=== PATIENT | female | born 1990 | race Caucasian/White ===

== ENCOUNTER 2017-12-12 21:42 | Emergency (ER) | payer MEDICAID, SELFPAY ==
[2017-12-12 21:44] VITALS: BP 131/74; PULSE 119; RESP 23; TEMP 37; O2SAT 100
[2017-12-12 21:48] VITALS: PULSE 135; RESP 22; RESP 23; O2SAT 100
[2017-12-12 21:50] VITALS: PULSE 121; RESP 15; O2SAT 100
[2017-12-12 22:00] VITALS: BP 124/76; PULSE 106; PULSE 109; RESP 20; O2SAT 100
[2017-12-12 22:01] VITALS: PULSE 98; RESP 19; O2SAT 100
--- NOTE | 2017-12-12 22:06 | ED.GENADUL_ITS ---
Disposition Clinical Impression: Anxiety, Asthma Disposition: HOME Condition: Stable Instructions: Asthma (ED), Anxiety (ED) Additional Instructions: follow up with your primary care provider within a week if you have severe worsening shortness of breath return to the emergency department Medical Decision Making - Medical Decision Making patient here with symptoms that are likely from anxiety and asthma. She is hd stable and speaking in full sentences with no significant hypoxia or work of breathing. Will give albuterol and spacer and 1 time dose of dexamethasone. SHe has no evidence of dvt and does have mild tachycardia but this is likely from the albuterol given to her prior to arrival. She has no pleuritic chest pain so doubt Pe. She will f/u with pcp and return precautions given. I suspect her right leg numbness was either related to anxiety or less likely periphearl neuropathy. She has no deficits on exam so doubt cva and no other deficits on hx so doubt tia - Differential Diagnosis anxiety, asthma, copd History of Present Illness - General Chief complaint: SOB Stated complaint: CALEX Time Seen by Provider: 12/12/17 21:42 Source: patient Mode of arrival: ambulatory Limitations: no limitations - History of Present Illness Initial comments: 27 yo female with hx of asthma and anxiety who comes in with shortness of breath. She states she was driving about 3 hours ago and her right leg became numb which sometimes happens when she is driving. She went for a run and felt anxious and short of breath so came here by ems. She was given an albuterol neb en route and now feels better. She is speaking in full sentences in no distress , does appear anxious. She states she has been under a lot of stress recently. denies chest pain, cough or fevers. She has mild expiratory wheezing at the bases bilaterally, no lower extremity edema and no calf pain MD Complaint: shortness of breath Onset/Timin -: hour(s) Improves with: none Worsens with: none Associated Symptoms: denies other symptoms Treatments Prior to Arrival: none - Related Data Sertraline HCl 80 mg PO DAILY ml 11/21/17 Allergies Allergy/AdvReac Type Severity Reaction Status Date / Time No Known Allergies Allergy Unverified 11/21/17 10:10 Review of Systems Constitutional: denies: fever Respiratory: shortness of breath. denies: cough Cardiovascular: denies: chest pain Psychiatric: anxiety. denies: homicidal thoughts, suicidal thoughts Comment: All other systems reviewed and negative Past Medical History - Past Medical History Medical history: asthma Surgical history: no surgical history - Social History Smoking status: current everyday smoker Alcohol use: none Drug use: none General Exam - General Limitations: no limitations General appearance: alert, anxious - Head Head exam: Present: atraumatic - Eye Eye exam: Present: normal apperance - ENT ENT exam: Present: mucous membranes moist - Neck Neck exam: Present: normal inspection - Respiratory Respiratory exam: Present: wheezes. Absent: respiratory distress, accessory muscle use - Cardiovascular Cardiovascular Exam: Present: normal rhythm, tachycardia, normal heart sounds - GI/Abdominal GI/Abdominal exam: Present: soft. Absent: tenderness - Extremities Exam Extremities exam: Present: normal inspection. Absent: pedal edema, calf tenderness - Neurological Exam Neurological exam: Present: alert, oriented X3, CN II-XII intact, normal gait. Absent: motor sensory deficit - Psychiatric Psychiatric exam: Present: anxious. Absent: homicidal ideation, suicidal ideation - Skin Skin exam: Present: warm Course Vital Signs - 24 hr 12/12/17 12/12/17 21:44 21:48 Temperature 98.6 F Pulse 119 H Respiratory 23 23 Rate Blood Pressure 131/74 Pulse Oximetry 100
[2017-12-12] MEDS: Dexamethasone 10 MG/ML VIAL PO (22:10)
[2017-12-12] MEDS: Albuterol HFA 8 GM 60 PUFF INH IH (22:10)
[2017-12-12] MEDS: Inhaler, Assist Device MC (22:11)
[2017-12-12 22:14] VITALS: TEMP 37.2
== END 2017-12-12 22:20 | disposition home or self-care (01) ==
PROVIDERS: Emergency Provider Emergency Medicine; PCP Family Medicine
DX: J45.909 Unspecified asthma, uncomplicated (principal); R41.9 Unspecified symptoms and signs involving cognitive functions and awareness
CPT/HCPCS: 99283; J1100

== ENCOUNTER 2018-01-02 20:40 | Emergency (ER) | payer MEDICAID, SELFPAY ==
[2018-01-02 20:50] VITALS: BP 119/59; PULSE 93; RESP 16; TEMP 36.2; O2SAT 96
--- NOTE | 2018-01-02 21:03 | ED.GENADUL ---
Disposition Clinical Impression: Anxiety Disposition: HOME Condition: Fair Instructions: Anxiety (ED) Additional Instructions: Encourage hydration. Please take medication as prescribed. Please pickle cutter your new medication as prescribed by psychiatrist tomorrow. Please continue to follow up with housing support, [facility] and local counselors. If you develop thoughts of self-harm, suicidal ideation, thoughts of harming others or the new/worsening symptoms please seek care urgently once again. Please follow-up within the next week with primary care for reevaluation. Referrals: Elif Sullivan [Primary Care Provider] - Medical Decision Making - Medical Decision Making Patient presents today with chief complaint of anxiety. Patient was picked up via EMS with chief complaint of anxiety attack while walking home from work. Patient reports she has multiple social stressors including her living situation, financial situation, work and the infrequency with which she sees her daughter. She reports that she had shortness of breath while having an anxiety attack. However, this is since resolved. Lungs are clear on exam. No wheezing or stridor. Good air movement in all villalba. EMS reports that her vital signs are normal. Oxygen was 100% on room air pulse 80. Patient was seen by her psychiatrist today who increase her sertraline. She has not been able to pickle cutter her new dose as of yet. Patient is describing anxiety, has a long history of anxiety and depression. Seems very upset regarding needing to work on. Her significant other is now present he reports that they had mechanical difficulty with the car. I reviewed the patient's notes from previous visits. This does sound consistent with previous complaints. She is not endorsing any neurologic deficits, when she was seen here earlier this month for anxiety she was endorsing sent altered sensation in her leg. She has no sensory deficits on exam. She is not endorsing headache. No visual changes. No chest pain. No GI upset. Patient is not hypoxic. Heart rate is noted to be minimally elevated. However, when nursing staff was taking this I was asked her about all of her social stressors she was teary on exam. She is not endorsing any pleuritic chest pain. Calves are soft and nontender. Patient is very low risk for ACS or PE, history is not consistent with this pathology. Patient's primary concern today is finding an acute treatment for her anxiety. Advised her that she may try breathing techniques. She reports that these have been discussed with her previously. However, does not sound that she uses tonight. Patient's medication was changed by her psychiatrist today. I encouraged her to pick this up tomorrow begin the new dose. Advised to continue with her counselors. I advised that she try to be self-aware as possible and know when her anxiety is starting to increase. I encouraged hydration. Patient has already been connected to multiple resources in the community for both financial and mental well-being. Advised that she continued with this. We discussed new/worsening symptoms when to seek care urgently once again. All of her questions and concerns were addressed and she is in agreement with this plan. History of Present Illness - General Chief complaint: RespSymp Stated complaint: CALEX Time Seen by Provider: 01/02/18 20:47 Source: patient, family, RN notes reviewed Mode of arrival: EMS Limitations: no limitations - History of Present Illness Initial comments: Patient is a 27-year-old female, accompanied by and brought in via EMS, with chief complaint of anxiety attack. Patient reports that prior to arrival she was at work, which she sounds very frustrated with. She reports that at the end of her shift her was supposed to pick her up. He did not pick her up and she was unable to obtain another ride, she began to walk home. Reports that while she was walking she became suddenly very anxious and short of breath. Patient has had multiple anxiety attacks in the past and has felt short of breath previously with them. Patient reports she has history of asthma. Does have inhaler but did not use this tonight. She denies a headache. No chest pain. Is not currently short of breath. Is currently feeling improved. Her significant other is now with her. He did review previous notes, most recently from her counselor, Myrna Escobar. She had reported the patient was having increased anxiety regarding a multitude of social stressors. Patient reiterates the same social stressors today. Patient was evaluated by psychiatrist today who has increased her sertraline. She was unable to pickle cutter this medication today, is planning to do so tomorrow. Patient sounds very upset that she needs to work a full-time job when she would rather be at home. However, patient also voiced financial stressors. Patient was angry with her place of employment today as They never even gave me a break. Seems very caught up with this and not getting a ride. Reports that she is hungry and thirsty. - Related Data Sertraline HCl 80 mg PO DAILY ml 11/21/17 Albuterol [Ventolin Hfa] 1 puff IH PRN 01/02/18 Allergies Allergy/AdvReac Type Severity Reaction Status Date / Time No Known Allergies Allergy Unverified 11/21/17 10:10 Review of Systems Constitutional: no symptoms reported Eyes: denies: vision change Respiratory: no symptoms reported, shortness of breath (has since resolved). denies: cough Cardiovascular: denies: chest pain, palpitations Gastrointestinal: denies: abdominal pain, nausea, vomiting Musculoskeletal: denies: back pain Skin: denies: rash Neurological: denies: headache Psychiatric: as per HPI, anxiety, depression. denies: auditory hallucinations, visual hallucinations, homicidal thoughts, suicidal thoughts Past Medical History - Past Medical History Medical history: asthma Surgical history: no surgical history Psychiatric history: depression - Social History Smoking status: current some day smoker Alcohol use: none Drug use: none Living Situation: lives with family General Exam - General Limitations: no limitations General appearance: alert, in no apparent distress, anxious - Head Head exam: Present: atraumatic - Eye Eye exam: Present: normal apperance - Respiratory Respiratory exam: Present: normal lung sounds bilaterally. Absent: respiratory distress - Cardiovascular Cardiovascular Exam: Present: regular rate, normal rhythm, normal heart sounds - Rectal Rectal exam: Present: deferred - Extremities Exam Extremities exam: Present: normal inspection. Absent: pedal edema, calf tenderness - Neurological Exam Neurological exam: Present: alert, CN II-XII intact, normal gait - Psychiatric Psychiatric exam: Present: depressed, anxious, flat affect - Skin Skin exam: Present: warm, dry, normal color Course Vital Signs - 24 hr 01/02/18 20:50 Temperature 36.2 C L Pulse 93 H Respiratory 16 Rate Blood Pressure 119/59 Pulse Oximetry 96
== END 2018-01-02 21:22 | disposition home or self-care (01) ==
PROVIDERS: Emergency Provider Emergency Medicine; PCP Family Medicine
DX: F41.8 Other specified anxiety disorders (principal)
CPT/HCPCS: 99283

== ENCOUNTER 2018-02-03 12:30 | Emergency (ER) | payer MEDICAID, SELFPAY ==
[2018-02-03 13:04] VITALS: BP 107/58; PULSE 70; RESP 16; TEMP 36.7; O2SAT 98
[2018-02-03 13:37] LABS: Bilirubin Negative (Negative); Blood Negative (Negative); Clarity Clear; Glucose Negative (Negative); Ketones Negative (Negative); Leukocyte Esterase Negative (Negative); Nitrite Negative (Negative); Urobilinogen 0.2 EU/dL (Up TO 0.2)
[2018-02-03] MEDS: Normal Saline 1,000 ML 1000 ML IV (15:10)
[2018-02-03] MEDS: Ondansetron 4 MG/2 ML VIAL IVP (15:20)
[2018-02-03] MEDS: Ketorolac 30 MG/ML VIAL IVP (15:20)
[2018-02-03 15:21] LABS: Absolute Basophil Count 0.01 k/cumm (0.0-0.2); Absolute Eosinophil Count 0.03 k/cumm (0.0-0.7); Absolute Lymphocyte Count 2.62 k/cumm (1.2-3.4); Absolute Monocyte Count 0.38 k/cumm (0.11-0.7); Basophils % 0.2; Eosinophils % 0.6; HCT 42.6 % (36.0-46.0); Lymphocytes % 48.2; Mean Corp. HGB Concentration 32.9 g/dL (32.0-36.0); Mean Corpuscular Hemoglobin 27.7 pg (27.0-33.0); Mean Corpuscular Volume 84.4 fL (80-95); Mean Platelet Volume 11.5 fL (8.0-11.0); Platelet Count 189 x1000/uL (130-400); RBC 5.05 m/cumm (4.00-5.20); RBC Distribution Width 13.2 % (11.7-14.6); White Blood Cell Count 5.44 k/cumm (4.4-10.8)
[2018-02-03 15:36] LABS: ALT 16 U/L (12-78); AST 13 U/L (15-37); Albumin 4.6 g/dL (3.4-5.0); Alkaline Phosphatase 78 U/L (46-116); Anion Gap 8.4 mmol/L (3-11); BUN 13 mg/dL (7-18); Bilirubin, Total 0.6 mg/dL (0.2-1.0); CO2 29.6 mmol/L (21.0-32.0); CREATININE 0.78 mg/dL (0.55-1.02); Calcium 9.2 mg/dL (8.5-10.1); Chloride 103 mmol/L (98-107); Glucose 81 mg/dL (70-100); Lipase 160 U/L (73-393); Potassium 3.3 mmol/L (3.5-5.1); Sodium 141 mmol/L (136-145); Total Protein 8.3 g/dL (6.4-8.2)
--- NOTE | 2018-02-03 16:16 | ED.GENADUL_ITS ---
Discharge Plan Disposition Patient Disposition: HOME Condition: Good Discharge Details Chief Complaint: Abd Prob Clinical Impression: Abdominal pain Primary Care Provider: Elif Sullivan ED Provider: Erik Barroso Home Meds and New Rx's Prescriptions: No Action sertraline 20 MG/1 ML concentrate 80 mg PO DAILY RF: 0 albuterol sulfate [Ventolin HFA] 60 PUFF/INH HFA aerosol inhaler 1 puff Inhalation PRN PRNRF: 0 Discharge Instructions Instructions: Abdominal Pain (ED) Additional Instructions: Feel free to return to the emergency department for new or worsening symptoms otherwise adventure diet as tolerated and if not improving over the next week follow-up with your primary care provider for reassessment Stand Alone Forms: Work Release Referrals: Elif Sullivan [Primary Care Provider] - (As needed for reassessment or if not improving) Discharge Data Discharge Date/Time-TO BE ENTERED AT DEPARTURE: 02/03/18 16:26 Medical Decision Making Patient presenting to the emergency department with chief complaint of abdominal pain and vomiting that began this morning. She states that she saw 2 small spots of blood in her emesis. Patient states that she has 9 out of 10 pain and discomfort. Patient is otherwise well-appearing in no acute signs of distress. Physical exam shows a generalized tender abdomen with no focal findings it is soft with no guarding and no obvious increase in pain or discomfort with palpation of the abdomen. Otherwise physical exam is unremarkable for any other findings. Plan to check labs, give IV fluids, give Zofran, and Toradol. At this time patient has a nonsurgical abdomen so I do not feel that any CT imaging is needed or warranted at this time. After review of lab results which are non-worrisome nondiagnostic patient was reassessed and states that she feels better and is now hungry and wanting to be discharged. I feel that all of these things are reassuring and that she may be discharged with recommendation to follow-up with primary care provider as needed for reassessment. Patient encouraged to take acetaminophen as needed for pain and to otherwise advance diet as tolerated. After discussion of diagnosis and plan of care patient has no further needs, questions, or concerns and states clear understanding to return to the emergency department for any worsening symptoms. Lab Data Lab results reviewed: Yes I reviewed the patient's lab results. HPI General Date/Time Provider Initiated Documentation: 02/03/18 13:30 . Limitations to Documentation: no limitations . Information obtained by: patient and RN notes reviewed . History of Present Illness described as moderate and severe, with intensity rated at 9. Quality is described as sharp, and is localized to the abdomen. Patient reports no radiation. Patient started experiencing this hour(s) (4) and it has been constant. No relieving factors improve symptom(s), No exacerbating factors reported . Patient did receive the following treatments prior to arrival, none Related Data Home Medications Medication Instructions Recorded Confirmed sertraline 80 mg PO DAILY ml 11/21/17 02/03/18 albuterol sulfate [Ventolin HFA] 1 puff INHALATION PRN PRN 01/02/18 02/03/18 Allergies Allergy/AdvReac Type Severity Reaction Status Date / Time No Known Allergies Allergy Unverified 02/03/18 13:11 General Stated Complaint: Abd Prob TIMBO: 3 Review of Systems Constitutional Denies body ache(s), Denies chills and Denies fever(s) Cardiovascular Denies chest pain and Denies dyspnea Respiratory Denies dyspnea Gastrointestinal Reports abdominal pain, Reports nausea, Reports vomiting and Reports hematemesis Genitourinary Denies urinary frequency, Denies flank pain, Denies urinary hesitancy, Denies urinary urgency and Denies vaginal discharge Integumentary/Breasts Denies rash PFSH Family History Mother Substance abuse Mental disorder Father No problems noted. Sister No problems noted. Sister No problems noted. Brother Mental disorder Asthma Brother No problems noted. Medical History Asthma Social History Smoking/Tobacco Use Status: Current every day Exam Const General: cooperative, no acute distress and not ill appearing Orientation: alert, awake and oriented x3 HENMT Mouth: moist mucous membranes Resp Effort & Inspection: normal respiratory effort, able to speak in complete sentences and no respiratory distress Auscultation: clear to auscultation bilaterally Cardio Rate: regular rate Rhythm: regular rhythm Heart Sounds: S1 normal and S2 normal GI Inspection: normal to inspection Palpation: soft, no hepatosplenomegaly, not firm, no guarding, no hernias, no masses, no pulsatile masses, not rigid and tender (Diffuse nonfocal) not at McBurney's point, Mcguire's sign negative, psoas sign negative and with no rebound tenderness Auscultation: normal bowel sounds Back/Spine/Pelvis Back: no CVA tenderness Skin General skin exam: no rashes or lesions noted Neuro General: alert, awake, oriented x3, moves all extremities and no focal motor deficits Sensory Exam: no sensory deficits noted Course Vital Signs Temperature 36.7 C 02/03/18 13:04 Pulse 70 02/03/18 13:04 Respiratory Rate 16 02/03/18 13:04 Blood Pressure 107/58 L 02/03/18 13:04 Pulse Oximetry 98 02/03/18 13:04 Temperature 36.7 C 02/03/18 13:04 Temperature Source Skin 02/03/18 13:04 Pulse 70 02/03/18 13:04 Respiratory Rate 16 02/03/18 13:04 Respiratory Effort 02/03/18 13:10 Blood Pressure 107/58 L 02/03/18 13:04 Blood Pressure Position Sitting 02/03/18 13:04 Pulse Oximetry 98 02/03/18 13:04 Oxygen Delivery Method Room Air 02/03/18 13:04 Oxygen Flow Rate 0 02/03/18 13:04 Pain Level 9 02/03/18 15:20 Lab/Test Results Lab/Test Results: Laboratory Tests Range/Units 02/03/18 02/03/18 02/03/18 13:15 15:10 15:10 WBC (4.4-10.8) k/cumm 5.44 RBC (4.00-5.20) m/cumm 5.05 Hgb (12.0-15.5) g/dL 14.0 Hct (36.0-46.0) % 42.6 MCV (80-95) fL 84.4 MCH (27.0-33.0) pg 27.7 MCHC (32.0-36.0) g/dL 32.9 RDW (11.7-14.6) % 13.2 Plt Count (130-400) x1000/uL 189 MPV (8.0-11.0) fL 11.5 H Immature Gran % 0.0 Neutrophils % 44.0 Lymphocytes % 48.2 Monocytes % 7.0 Eosinophils % 0.6 Basophils % 0.2 Absolute Neutrophils (1.2-6.7) k/cumm 2.40 Absolute Lymphocytes (1.2-3.4) k/cumm 2.62 Absolute Monocytes (0.11-0.7) k/cumm 0.38 Absolute Eosinophils (0.0-0.7) k/cumm 0.03 Absolute Basophils (0.0-0.2) k/cumm 0.01 Sodium (136-145) mmol/L 141 Potassium (3.5-5.1) mmol/L 3.3 L Chloride (98-107) mmol/L 103 Carbon Dioxide (21.0-32.0) mmol/L 29.6 Anion Gap (3-11) mmol/L 8.4 BUN (7-18) mg/dL 13 Creatinine (0.55-1.02) mg/dL 0.78 Estimated GFR/1.73 m2 (mL/min/1.73m2) >= 60.00 Glucose (70-100) mg/dL 81 Calcium (8.5-10.1) mg/dL 9.2 Total Bilirubin (0.2-1.0) mg/dL 0.6 AST (15-37) U/L 13 L ALT (12-78) U/L 16 Alkaline Phosphatase (46-116) U/L 78 Total Protein (6.4-8.2) g/dL 8.3 H Albumin (3.4-5.0) g/dL 4.6 Lipase (73-393) U/L 160 Urine Color (Yellow) Yellow Urine Clarity Clear Urine pH (5-8) 7.0 Ur Specific [place] (1.005-1.025) 1.020 Urine Protein (Negative) mg/dL Negative Urine Ketones (Negative) mg/dL Negative Urine Blood (Negative) Negative Urine Nitrite (Negative) Negative Urine Bilirubin (Negative) Negative Urine Urobilinogen (Up TO 0.2) EU/dL 0.2 Ur Leukocyte Esterase (Negative) Negative Urine Glucose (Negative) mg/dL Negative POC- Test(urine) Negative
[2018-02-03 16:27] VITALS: BP 116/72; PULSE 60; RESP 14; TEMP 36.7; O2SAT 100
== END 2018-02-03 16:26 | disposition home or self-care (01) ==
PROVIDERS: Emergency Provider Nurse Practitioner Family; PCP Family Medicine
DX: R10.84 Generalized abdominal pain (principal); R10.10 Upper abdominal pain, unspecified
CPT/HCPCS: 80053; 81025; 83690; 96361; 96374; 96375; 99285; 81003; 85025; 99284; J1885; J2405

== ENCOUNTER 2018-02-16 12:10 | Emergency (ER) | payer MEDICAID, SELFPAY ==
[2018-02-16 12:20] VITALS: BP 123/65; PULSE 87; RESP 16; TEMP 36.8; O2SAT 98
--- NOTE | 2018-02-16 12:33 | ED.GENADUL_ITS ---
Discharge Plan Disposition Patient Disposition: HOME Condition: Good Discharge Details Chief Complaint: EarProblem Clinical Impression: URI (upper respiratory infection) Primary Care Provider: Elif Sullivan ED Provider: Benigno Phelan Home Meds and New Rx's Prescriptions: Continue oxybutynin chloride 5 mg tablet extended release 24hr 5 mg PO DAILY Qty: 30 RF: 3 sertraline 20 MG/1 ML concentrate 80 mg PO DAILY RF: 0 albuterol sulfate [Ventolin HFA] 60 PUFF/INH HFA aerosol inhaler 1 puff Inhalation PRN PRNRF: 0 Discharge Instructions Instructions: Upper Respiratory Infection (ED) Discharge Data Discharge Physician: Benigno Phelan Medical Decision Making 27 yo female who comes in with complaint of left era pain for 2 days as well as runny nose and dry cough and some nausea and vomit yesterday. denies fevers or dyspnea. Has clear fluid behind both tm's on exam otherwise both are not red or bulging and normal external ear exam and quality process auditor canal and no pain or swelling or warmth or redness over mastoid. I suspect uri due to virus. She is HD stable now with normal vitals and apperas well so do not feel any blood work or imaging indicated nor abx indicated. Advised f/u with pcp this week and return precautions given Differential Diagnosis uri, viral illness, aom, aoe HPI General Date/Time Provider Initiated Documentation: 02/16/18 12:24 . History of Present Illness 27 year old F presents to the emergency department with the chief complaint of left ear pain, described as moderate, with intensity rated at 4. Quality is described as aching, and is localized to the left. Patient started experiencing this day(s) (2) and it has been constant. No relieving factors improve symptom(s), No exacerbating factors reported . Patient notes cough. Patient did receive the following treatments prior to arrival, none Related Data Home Medications Medication Instructions Recorded Confirmed sertraline 80 mg PO DAILY ml 11/21/17 02/14/18 albuterol sulfate [Ventolin HFA] 1 puff INHALATION PRN PRN 01/02/18 02/14/18 oxybutynin chloride ER 5 mg 5 mg PO DAILY #30 tab 02/14/18 02/14/18 tablet,extended release 24 hr Previous Rx's Medication Instructions Recorded oxybutynin chloride ER 5 mg 5 mg PO DAILY #30 tab 02/14/18 tablet,extended release 24 hr Allergies Allergy/AdvReac Type Severity Reaction Status Date / Time No Known Allergies Allergy Verified 02/14/18 10:05 General Stated Complaint: EarProblem TIMBO: 3 Review of Systems Review of Systems All systems reviewed & are unremarkable except as noted in HPI and below Constitutional Denies chills, Denies fever(s) and Denies weakness Eyes Denies loss of vision ENT Denies change in voice Cardiovascular Denies chest pain and Denies dyspnea Respiratory Denies dyspnea Gastrointestinal Denies abdominal pain Genitourinary Denies dysuria Musculoskeletal Denies joint swelling Integumentary/Breasts Denies rash Neurologic Denies loss of vision and Denies weakness Psychiatric Denies depression Endocrine Denies cold intolerance and Denies heat intolerance Allergic/Immunologic Reports urticaria Exam Const General: no acute distress Orientation: alert HENMT Head: normal to inspection Ears: external ears normal General nose exam: external nose normal Mouth: moist mucous membranes Eyes General: appearance normal, both eyes and all related structures Neck Neck: normal visual inspection Resp Effort & Inspection: normal respiratory effort and able to speak in complete sentences Cardio Rate: regular rate Skin General skin exam: no rashes or lesions noted Neuro General: alert and oriented x3 Extrem General: normal to inspection Psych Mental Status: mental status grossly normal Course Vital Signs Temperature 36.8 C 02/16/18 12:20 Pulse 87 02/16/18 12:20 Respiratory Rate 16 02/16/18 12:20 Blood Pressure 123/65 02/16/18 12:20 Pulse Oximetry 98 02/16/18 12:20 Temperature 36.8 C 02/16/18 12:20 Temperature Source Temporal Artery Scan 02/16/18 12:20 Pulse 87 02/16/18 12:20 Respiratory Rate 16 02/16/18 12:20 Respiratory Effort Non-Labored 02/16/18 12:21 Blood Pressure 123/65 02/16/18 12:20 Blood Pressure Position Sitting 02/16/18 12:20 Pulse Oximetry 98 02/16/18 12:20 Oxygen Delivery Method Room Air 02/16/18 12:20 Oxygen Flow Rate 0 02/16/18 12:20 Pain Level 10 02/16/18 12:20
--- NOTE | 2018-02-18 10:54 | PDOC.ERCMPRO ---
Care Management Progress Note 02/18-Dr. Phelan requested assistance with a PCP (Laurie) f/u this week for ear pain. Referral faxed to [facility] this am.
== END 2018-02-16 12:40 | disposition home or self-care (01) ==
LOC: ER 12:41
PROVIDERS: Emergency Provider Emergency Medicine; PCP Family Medicine
DX: J06.9 Acute upper respiratory infection, unspecified (principal)
CPT/HCPCS: 99283

== ENCOUNTER 2018-05-20 20:49 | Emergency (ER) | payer MEDICAID, SELFPAY ==
[2018-05-20 20:54] VITALS: BP 123/71; PULSE 115; RESP 20; TEMP 38.4; O2SAT 99
[2018-05-20 20:55] VITALS: BP 123/71; PULSE 94; RESP 20; TEMP 37; O2SAT 99
--- NOTE | 2018-05-20 21:04 | ED.GENADUL_ITS ---
Discharge Plan Disposition Patient Disposition: HOME Condition: Good Discharge Details Chief Complaint: RespSymp Clinical Impression: Flu syndrome Reason For Visit: ADALBERTO Primary Care Provider: Elif Sullivan ED Provider: Martin Maldonado Home Meds and New Rx's Prescriptions: New oseltamivir [Tamiflu] 75 mg capsule 75 mg PO BID 5 Days Qty: 10 RF: 0 No Action oxybutynin chloride 5 mg tablet extended release 24hr 5 mg PO DAILY Qty: 30 RF: 11 sertraline 20 MG/1 ML concentrate 80 mg PO DAILY RF: 0 Ventolin HFA 60 PUFF/INH HFA aerosol inhaler 1 puff Inhalation PRN PRNRF: 0 Discharge Instructions Instructions: Influenza (ED) Additional Instructions: Please take the medication as directed. If you notice any worsening of your symptoms, or any new symptoms such as vomiting, diarrhea, fever, chills, shortness of breath, chest pain, numbness, weakness, or fainting , please return immediately to the emergency department for reevaluation. Please follow up with your primary care provider as soon as possible for reassessment and reeval uation. As always, it was a pleasure participating in your medical care today. Referrals: Elif Sullivan [Primary Care Provider] - Medical Decision Making This is a 27-year-old female who presents with flulike illness starting last night. Mild fever, chills and vomiting, achiness. She did not get her flu shot. Physical exam demonstrates no concerning red flags of symptoms suggestive of meningitis, encephalitis, or pneumonia. Vital signs are reassuring aside for a mild temperature, and a mild elevation in her heart rate. She denies any chest pain or shortness of breath. Denies PE risk factors such as recent long car rides, immobilization, recent surgery, prior history of DVT or PE, family history of PE or DVT, morbid obesity, exogenous estrogen and smoking, hemoptysis, history of cancer. I feel her signs and symptoms are consistent with a viral illness. We will test for flu, rehydrate through the IV placed by EMS, and give Toradol. 10:18 p.m. After fluids and Toradol the patient is feeling much better. Vital signs have normalized, no tachycardia, no fever, no tachypnea and normal oxygen saturations. Patient is feeling much better at this time and is requesting discharge. Influenza and strep are both negative however the patient signs and symptoms are certainly concerning for flu with a fever chills achiness, as well as the endemic of flu that is currently going around. We have had a rash of negative influenza with a rapid test, with subsequent serology being positive. I am concerned that the patient is likely fitting within this category with her signs and symptoms clinically consistent with influenza and clinically inconsistent with meningitis, severe bacterial infection, or encephalitis or pneumonia. We will start Tamiflu now, and prescribe a dose of Tamiflu for home use. I have extensively reviewed the treatment plan and discharge instructions with the patient and their family. I have addressed all patient concerns at this time. The patient and family was made aware of what symptoms to monitor for that would warrant a return to the emergency department. Discussed the plan with the patient and family, they demonstrate verbal understanding and agreement with our assessment and plan at this time. HPI General Date/Time Provider Initiated Documentation: 05/20/18 20:56 . HPI Narrative: This is a 27-year-old female with a past medical history of a tubal li gation, depression, and asthma who presents today for evaluation of flulike symptoms. The patient states that starting last night she has felt generalized fatigue, achiness, mild headache, mild sore throat, nausea with no vomiting and a mild cough with congestion as well as associated chills. Per EMS patient had a fever 100.5. She called EMS to be brought from home with her symptoms. followed behind in the household vehicle. Patient denies any red flags of neck stiffness, vomiting, diarrhea. She denies any other sick contacts. She did not get a flu shot this year. Past surgical history is positive for tubal ligation. She denies any IV or illicit drug use. She denies any pertinent family history Related Data Home Medications Medication Instructions Recorded Confirmed sertraline 80 mg PO DAILY ml 11/21/17 05/13/18 Ventolin HFA 1 puff INHALATION PRN PRN 01/02/18 05/13/18 oxybutynin chloride ER 5 mg 5 mg PO DAILY #30 tab 05/13/18 05/13/18 tablet,extended release 24 hr oseltamivir [Tamiflu] 75 mg PO BID 5 Days #10 cap 05/20/18 Previous Rx's Medication Instructions Recorded oxybutynin chloride ER 5 mg 5 mg PO DAILY #30 tab 05/13/18 tablet,extended release 24 hr oseltamivir [Tamiflu] 75 mg PO BID 5 Days #10 cap 05/20/18 Allergies Allergy/AdvReac Type Severity Reaction Status Date / Time No Known Allergies Allergy Verified 02/14/18 10:05 General Stated Complaint: RespSymp TIMBO: 3 Review of Systems Review of Systems All systems reviewed & are unremarkable except as noted in HPI and below PFSH Social History Smoking/Tobacco Use Status: Current every day alcohol intake: never substance use type: does not use Exam Narrative Exam Narrative: 1.Const: Well-nourished, Well-developed, appearing stated age 2.Eyes: PERRL, no conjunctival injection, and symmetrical lids. 3.ENT: Atraumatic external nose and ears. Moist MM. Neck: Symmetric, trachea midline, No thyromegaly. Patient demonstrates good movement of cervical neck. There is no nuchal rigidity, no nuchal tenderness. Patient is able to flex the neck without any difficulty or significant pain. Negative Kernig's and Brudzinski sign. 4.CVS: +S1/S2, No murmurs or gallops. Peripheral pulses 2+ and equal in all extremities. Brisk capillary refill in all extremities. 5.RESP: Unlabored respiratory effort. Clear to auscultation bilaterally. No wheezes rales or rhonchi 6.GI: Soft, Nontender/Nondistended, No hepatosplenomegaly. No guarding or rebound. 7.MSK: Normocephalic/Atraumatic, Extremities w/o deformity or ttp No cyanosis or clubbing, Normal movement of all extremities 8.Skin: Warm, Dry. No rashes or lesions. 9.Neuro: geographic area intelligence officer II-XII grossly intact. Sensation grossly intact, no focal neurologic deficits. 10.Psych: (AAO) x3. Appropriate mood and affect Course Vital Signs Temperature 38.4 C H 05/20/18 20:54 Pulse 115 H 05/20/18 20:54 Respiratory Rate 20 05/20/18 20:54 Blood Pressure 123/71 05/20/18 20:54 Pulse Oximetry 99 05/20/18 20:54 Temperature 38.4 C H 05/20/18 20:54 Temperature Source Temporal Artery Scan 05/20/18 20:54 Pulse 115 H 05/20/18 20:54 Respiratory Rate 20 05/20/18 20:54 Respiratory Effort Non-Labored 05/20/18 20:54 Blood Pressure 123/71 05/20/18 20:54 Blood Pressure Position Supine 05/20/18 20:54 Pulse Oximetry 99 05/20/18 20:54 Oxygen Delivery Method Room Air 05/20/18 20:54 Oxygen Flow Rate 0 05/20/18 20:54 Pain Level 10 05/20/18 20:54
[2018-05-20] MEDS: Normal Saline 1,000 ML 1000 ML IV (21:13)
[2018-05-20] MEDS: Ketorolac 30 MG/ML VIAL IVP (21:13)
[2018-05-20 22:15] VITALS: PULSE 94; TEMP 37
[2018-05-20] MEDS: Oseltamivir 75 MG CAP PO (22:34)
== END 2018-05-20 22:40 | disposition home or self-care (01) ==
PROVIDERS: Emergency Provider Student in an Organized Health Care Education/Training Program; PCP Family Medicine
DX: J11.1 Influenza due to unidentified influenza virus with other respiratory manifestations (principal); F17.210 Nicotine dependence, cigarettes, uncomplicated
CPT/HCPCS: 87449; 87880; 96360; 96372; 99284; J1885

== ENCOUNTER 2018-08-29 22:11 | Outpatient (REF) | payer MEDICAID, SELFPAY ==
--- NOTE | 2018-08-29 15:00 | PAPFT_PTH ---
PATIENT: MACIEJ JEAN BAPTISTE LOC: [facility] U#:[id number] AGE/SX: 28/F ROOM: RE08/29/[address]: Elif Sullivan : 1990 BED: DIS: 08/29/2018 SPEC #: [id number] RECD: 08/30/18 12:54 STATUS: TONY REQ #: [id number] OSWALDO: 08/29/18 15:[address]: Elif Sullivan DEPT: [facility] Cytology RECD BY: Mehrdad Bernal Tissues: 1 - CX/ENDOCX FOR PAP SMEARS Procedures: PAP THIN PREP/UVM Screening HPV DNA PROBE Comments: [id number] (Chlamydia/GC)
[2018-09-02 13:32] LABS: Chlamydia Result Negative; GC Result Negative; Specimen Description SEE COMMENTS
== END 2018-08-29 22:31 ==
LOC: NCHCN 22:11
PROVIDERS: PCP Family Medicine; Visit Provider Family Medicine
DX: Z12.4 Encounter for screening for malignant neoplasm of cervix (principal); Z11.51 Encounter for screening for human papillomavirus (HPV); Z01.419 Encounter for gynecological examination (general) (routine) without abnormal findings; Z11.3 Encounter for screening for infections with a predominantly sexual mode of transmission
CPT/HCPCS: 87491; 87591; 88142; 87624

== ENCOUNTER 2018-09-16 13:15 | Emergency (ER) | payer MEDICAID, SELFPAY ==
[2018-09-16 13:17] VITALS: BP 120/65; PULSE 70; RESP 16; TEMP 36.6; O2SAT 99
--- NOTE | 2018-09-16 13:40 | DI.RAD_ITS ---
SYMPTOMS/DIAGNOSIS: KNEE PAIN S/P BLUNT TRAUMA OF BUMPING KNEE ON COFFEE TABLE LEFT KNEE: Comparison is made with September,. The joint spaces are well maintained. No fracture or joint effusion is seen. Soft tissue swelling is noted posteromedially, could represent a posttraumatic hematoma. Clinical correlation is recommended.
[2018-09-16] MEDS: Acetaminophen 500 MG TAB 1000 MG PO (13:48)
--- NOTE | 2018-09-16 13:53 | ED.GENADUL_ITS ---
Discharge Plan Disposition Patient Disposition: HOME Discharge Details Chief Complaint: Orthopedic Primary Care Provider: Elif Sullivan ED Provider: Erik Barroso Home Meds and New Rx's Prescriptions: No Action oxybutynin chloride 5 mg tablet extended release 24hr 5 mg PO DAILY Qty: 30 RF: 11 sertraline 20 MG/1 ML concentrate 80 mg PO DAILY RF: 0 albuterol sulfate [Ventolin HFA] 60 PUFF/INH HFA aerosol inhaler 1 puff Inhalation PRN PRNRF: 0 Discharge Data Discharge Date/Time-TO BE ENTERED AT DEPARTURE: 09/16/18 15:28 Medical Decision Making Patient states that yesterday evening she significantly struck her anterior knee while walking through her apartment in the dark. She states since then she has had pain with movement of the knee and weightbearing. Physical exam shows tenderness to the patella and the lateral aspect of the knee with some minimal swelling to the lateral aspect. Otherwise patient does have full range of motion of the knee but does seem to elicit pain. Exam is otherwise unremarkable. Given area of discomfort plan to do radiological imaging to rule out patella fracture but have higher suspicion of contusion. Pending results patient given acetaminophen. Review of radiological imaging shows no acute signs of fracture. Patient was given an Riley wrap and was able to fully ambulate and weight-bear with this in place. Return precautions were discussed along with conservative management using ice and [id number] pain medication. After discussion of diagnosis and plan of care patient has no further needs, questions, or concerns and states clear understanding to return to the emergency department for any worsening symptoms. HPI General Mode of arrival: ambulatory . Date/Time Provider Initiated Documentation: 09/16/18 13:18 . Limitations to Documentation: no limitations . Information obtained by: patient . History of Present Illness 28 year old F presents to the emergency department with the chief complaint of left knee pain, described as moderate, with intensity rated at 8. Quality is described as aching, and is localized to the left and lower extremity. Patient started experiencing this day(s) (1) and it has been constant. No relieving factors improve symptom(s), Movement worsens symptoms . Patient notes no other symptoms.. Patient did receive the following treatments prior to arrival, none Related Data Home Medications Medication Instructions Recorded Confirmed sertraline 80 mg PO DAILY ml 11/21/17 09/16/18 albuterol sulfate [Ventolin HFA] 1 puff INHALATION PRN PRN 01/02/18 09/16/18 oxybutynin chloride ER 5 mg 5 mg PO DAILY #30 tab 05/13/18 09/16/18 tablet,extended release 24 hr Previous Rx's Medication Instructions Recorded oxybutynin chloride ER 5 mg 5 mg PO DAILY #30 tab 05/13/18 tablet,extended release 24 hr Allergies Allergy/AdvReac Type Severity Reaction Status Date / Time No Known Allergies Allergy Verified 09/16/18 13:22 General Stated Complaint: Orthopedic TIMBO: 4 Review of Systems Cardiovascular Denies syncope Musculoskeletal Reports as per HPI, Denies numbness and Denies tingling Integumentary/Breasts Denies rash, Denies sores and Denies wounds Neurologic Denies syncope, Denies numbness and Denies tingling PFSH Medical History Asthma Family History Mother Substance abuse Mental disorder Father No problems noted. Sister No problems noted. Sister No problems noted. Brother Mental disorder Asthma Brother No problems noted. Social History Smoking/Tobacco Use Status: Current every day Tobacco Type: cigarettes Alcohol Intake: never Drug use: Never Substance use type: does not use Do you feel safe at home: Yes Do you feel safe in your relationship?: Yes Exam Const General: cooperative and no acute distress Orientation: alert, awake and oriented x3 Resp Effort & Inspection: normal respiratory effort and able to speak in complete sentences Cardio Rate: regular rate Rhythm: regular rhythm Extrem Left lower extremity: knee Details: tenderness Location: of the patella and of the lateral joint line, swelling (lateral), abnormal ROM Details: pain with active ROM and with range as follows (full) and knee ligament exam normal; no ecchymosis and no crepitus Course Vital Signs Temperature 36.6 C 09/16/18 13:17 Pulse 70 09/16/18 13:17 Respiratory Rate 16 09/16/18 13:17 Blood Pressure 120/65 09/16/18 13:17 Pulse Oximetry 99 09/16/18 13:17 Temperature 36.6 C 09/16/18 13:17 Temperature Source Skin 09/16/18 13:17 Pulse 70 09/16/18 13:17 Respiratory Rate 16 09/16/18 13:17 Respiratory Effort Non-Labored 09/16/18 13:20 Blood Pressure 120/65 09/16/18 13:17 Pulse Oximetry 99 09/16/18 13:17 Oxygen Delivery Method Room Air 09/16/18 13:17 Oxygen Flow Rate 0 09/16/18 13:17
[2018-09-16 15:28] VITALS: BP 120/65; PULSE 70; RESP 16; TEMP 36.6; O2SAT 99
== END 2018-09-16 15:28 | disposition home or self-care (01) ==
PROVIDERS: Emergency Provider Nurse Practitioner Family; PCP Family Medicine
DX: S80.02XA Contusion of left knee, initial encounter (principal); W22.8XXA Striking against or struck by other objects, initial encounter
CPT/HCPCS: 99283; 73564; 99282

== ENCOUNTER 2018-10-30 14:14 | Outpatient (REF) | payer MEDICAID, SELFPAY ==
[2018-10-31 15:29] LABS: Chlamydia Result Negative; GC Result Negative; Specimen Description CERVIX
== END 2018-10-30 14:34 ==
LOC: LBN 14:14
PROVIDERS: PCP Family Medicine; Visit Provider Nurse Practitioner Women's Health
DX: Z11.3 Encounter for screening for infections with a predominantly sexual mode of transmission (principal)
CPT/HCPCS: 87491; 87591

== ENCOUNTER 2018-11-26 18:19 | Emergency (ER) | payer MEDICAID, SELFPAY ==
[2018-11-26 18:25] VITALS: BP 116/59; PULSE 54; RESP 16; TEMP 36.6; O2SAT 98
--- NOTE | 2018-11-26 18:52 | ED.GENADUL_ITS ---
Discharge Plan Disposition Patient Disposition: HOME Condition: Stable Discharge Details Chief Complaint: RashLesion Clinical Impression: Bee sting Primary Care Provider: Elif Sullivan ED Provider: Benigno Phelan Home Meds and New Rx's Prescriptions: No Action sertraline 20 MG/1 ML concentrate 80 mg PO DAILY RF: 0 albuterol sulfate [Ventolin HFA] 60 PUFF/INH HFA aerosol inhaler 1 puff Inhalation PRN PRNRF: 0 Discharge Instructions Instructions: Insect Bite or Sting (ED) Additional Instructions: if you have worsening shortness of breath, severe abdominal pain with spreading rash return to the emergency department benadryl is okay to take for itching and be aware it may make you drowsy so don't drive or drink alcohol if you take this. Follow dosing instructions on packaging Medical Decision Making 28 yo female comes in after a bee stung her left upper thigh. HAs 2cm mild erythema surrounding it. NO severe pain. No symptoms to suggest anaphyalxis, no respiratory or gi symptoms. ADvised prn benadryl and return precautions given Differential Diagnosis bee sting, urticaria HPI General Mode of arrival: ambulatory . Date/Time Provider Initiated Documentation: 11/26/18 18:46 . Limitations to Documentation: no limitations . Information obtained by: patient . History of Present Illness 28 year old F presents to the emergency department with the chief complaint of bee sting, described as moderate, Quality is described as aching, and is localized to the left and lower extremity. Patient started experiencing this hour(s) (1) and it has been constant. No relieving factors improve symptom(s), No exacerbating factors reported . Patient notes no other symptoms.. Related Data Home Medications Medication Instructions Recorded Confirmed sertraline 80 mg PO DAILY ml 11/21/17 11/26/18 albuterol sulfate [Ventolin HFA] 1 puff INHALATION PRN PRN 01/02/18 11/26/18 Allergies Allergy/AdvReac Type Severity Reaction Status Date / Time No Known Allergies Allergy Verified 09/16/18 13:22 General Stated Complaint: RashLesion TIMBO: 5 Review of Systems Review of Systems All systems reviewed & are unremarkable except as noted in HPI and below Constitutional Denies chills, Denies fever(s) and Denies weakness Cardiovascular Denies chest pain and Denies dyspnea Respiratory Denies cough and Denies dyspnea Gastrointestinal Denies abdominal pain, Denies nausea and Denies vomiting Neurologic Denies weakness Allergic/Immunologic Denies urticaria PFSH Medical History (Updated 10/30/18 @ 13:37 by Eileen Phelan NP) Asthma History of developmental disability (Acute 07/25/16) Surgical History (Updated 10/30/18 @ 13:37 by Eileen Phelan NP) History of tubal ligation (Chronic) Social History Smoking/Tobacco Use Status: Current every day Tobacco Type: cigarettes Alcohol Intake: never Drug use: Never Substance use type: does not use Do you feel safe at home: Yes Do you feel safe in your relationship?: Yes History History 1 Para 1 Hx # Term Pregnancies Multiple births Hx # Pregnancies Ectopic pregnancies AB induced Hx Number of Living Children AB spontaneous Exam Const General: no acute distress Orientation: alert HENMT Head: normal to inspection Ears: external ears normal General nose exam: external nose normal Mouth: moist mucous membranes Eyes General: appearance normal, both eyes and all related structures Neck Neck: normal visual inspection Resp Effort & Inspection: normal respiratory effort and able to speak in complete sentences Cardio Rate: regular rate Skin General skin exam: elasticity normal Neuro General: alert and oriented x3 Extrem General: normal to inspection Psych Mental Status: mental status grossly normal Course Vital Signs Temperature 36.6 C 11/26/18 18:25 Pulse 54 L 11/26/18 18:25 Respiratory Rate 16 11/26/18 18:25 Blood Pressure 116/59 L 11/26/18 18:25 Pulse Oximetry 98 11/26/18 18:25 Temperature 36.6 C 11/26/18 18:25 Pulse 54 L 11/26/18 18:25 Respiratory Rate 16 11/26/18 18:25 Respiratory Effort Non-Labored 11/26/18 18:31 Blood Pressure 116/59 L 11/26/18 18:25 Blood Pressure Position Sitting 11/26/18 18:25 Pulse Oximetry 98 11/26/18 18:25 Oxygen Delivery Method Room Air 11/26/18 18:25 Oxygen Flow Rate 0 11/26/18 18:25 Pain Level 0 11/26/18 18:25
== END 2018-11-26 18:59 | disposition home or self-care (01) ==
PROVIDERS: Emergency Provider Emergency Medicine; PCP Family Medicine
DX: T63.441A Toxic effect of venom of bees, accidental (unintentional), initial encounter (principal); L53.9 Erythematous condition, unspecified
CPT/HCPCS: 99282

== ENCOUNTER 2018-12-02 22:13 | Emergency (ER) | payer MEDICAID, SELFPAY ==
[2018-12-02 22:16] VITALS: BP 115/53; PULSE 63; RESP 18; TEMP 36.9; O2SAT 99
[2018-12-02 22:19] VITALS: RESP 18
--- NOTE | 2018-12-02 22:34 | W.ED.GENAD ---
Discharge Plan Disposition Patient Disposition: HOME Condition: Good Discharge Details Chief Complaint: GenMedical Clinical Impression: Breast pain, left Primary Care Provider: Elif Sullivan ED Provider: Erik Barroso Home Meds and New Rx's Prescriptions: Continued sertraline 20 MG/1 ML concentrate 80 mg PO DAILY RF: 0 albuterol sulfate [Ventolin HFA] 60 PUFF/INH HFA aerosol inhaler 1 puff Inhalation PRN PRNRF: 0 Discharge Instructions Additional Instructions: Continue to observe your pain and discomfort and if you notice any signs of infection, swelling, or lumps present feel free to return for reassessment or follow directly with [facility] for further testing. Continue to take your medication as prescribed Referrals: [facility] [Provider Group] (Please call the office for arrangement of follow-up appointment if your breast pain continues) Discharge Data Discharge Date/Time-TO BE ENTERED AT DEPARTURE: 12/02/18 23:08 Medical Decision Making Patient presenting to the emergency department for chief complaint of left breast pain. Patient states that she was sitting on the couch when she started having left breast pain while at rest. Patient denies any injury trauma, redness, fever chills. Patient does report that she did start her menstrual cycle 2 days ago. physical exam is completely unremarkable showing no lymphadenopathy, no abscess, no drainage from the nipple, no visual or palpable abnormalities noted. Patient states that she was very concerned about breast cancer due to family history. Had thorough discussion with patient that she should follow-up with [facility] for any concern of breast cancer or need of breast cancer screening but at this time there is no palpable abnormality or emergent condition that is noted on exam. Exam was done with RN nursing department chairperson at bedside. Patient given acetaminophen for pain control and informed that she may apply cold compress to see if this helps her symptoms. Otherwise patient states that she will call [facility] arrange follow-up appointment which I feel is appropriate. HPI General Mode of arrival: ambulatory. Date/Time Provider Initiated Documentation: 12/02/18 22:17. Limitations to Documentation: no limitations. Information obtained by: patient and RN notes reviewed. History of Present Illness 28 year old F presents to the emergency department with the chief complaint of left breast pain, described as moderate, with intensity rated at 10. Quality is described as sharp, and is localized to the left (breast). Patient started experiencing this hour(s) (1) and it has been constant. No relieving factors improve symptom(s), Movement worsens symptoms (of left arm) . Patient did receive the following treatments prior to arrival, none Related Data Home Medications Medication Instructions Recorded Confirmed sertraline 80 mg PO DAILY ml 11/21/17 12/02/18 albuterol sulfate [Ventolin HFA] 1 puff INHALATION PRN PRN 01/02/18 12/02/18 Allergies Allergy/AdvReac Type Severity Reaction Status Date / Time No Known Allergies Allergy Verified 12/02/18 22:18 General Stated Complaint: GenMedical TIMBO: 4 Review of Systems Constitutional Denies fever(s) Cardiovascular Denies chest pain and Denies dyspnea Respiratory Denies dyspnea Genitourinary Reports nipple discharge (clear- 2 days ago) Integumentary/Breasts Reports as per HPI, Denies breast swelling, Denies breast skin changes, Reports breast pain, Reports nipple discharge (clear- 2 days ago) and Denies rash [facility] Medical History Asthma History of developmental disability (Acute 07/25/16) Surgical History History of tubal ligation (Chronic) Family History Mother Substance abuse Mental disorder Father No problems noted. Sister No problems noted. Sister No problems noted. Brother Mental disorder Asthma Brother No problems noted. Social History Smoking/Tobacco Use Status: Current every day Tobacco Type: cigarettes Alcohol Intake: never Drug use: Never Substance use type: does not use Do you feel safe at home: Yes Do you feel safe in your relationship?: Yes History History 1 Para 1 Hx # Term Pregnancies Multiple births Hx # Pregnancies Ectopic pregnancies AB induced Hx Number of Living Children AB spontaneous Exam Const General: cooperative, no acute distress and not ill appearing Orientation: alert, awake and oriented x3 Chest Chest: normal inspection of the chest and normal palpation of entire chest wall Breast inspection: normal inspection of the breasts and normal inspection of the axillae Breast palpation: normal palpation of the breasts, normal palpation of the axillae and no axillary lymphadenopathy Resp Effort & Inspection: normal respiratory effort, able to speak in complete sentences and no respiratory distress Skin General skin exam: no rashes or lesions noted Course Vital Signs Temperature 36.9 C 12/02/18 22:16 Pulse 63 12/02/18 22:16 Respiratory Rate 18 12/02/18 22:16 Blood Pressure 115/53 L 12/02/18 22:16 Pulse Oximetry 99 12/02/18 22:16 Temperature 36.9 C 12/02/18 22:16 Temperature Source Temporal Artery Scan 12/02/18 22:16 Pulse 63 12/02/18 22:16 Respiratory Rate 18 12/02/18 22:19 Respiratory Effort Non-Labored 12/02/18 22:19 Respiratory Depth Normal 12/02/18 22:19 Respiratory Pattern Normal 12/02/18 22:19 Blood Pressure 115/53 L 12/02/18 22:16 Blood Pressure Position Sitting 12/02/18 22:16 Pulse Oximetry 99 12/02/18 22:16 Oxygen Delivery Method Room Air 12/02/18 22:16 Oxygen Flow Rate 0 12/02/18 22:16 Pain Level 10 12/02/18 22:16
[2018-12-02 23:07] VITALS: BP 115/53; PULSE 63; RESP 18; TEMP 36.9; O2SAT 99
[2018-12-02] MEDS: Acetaminophen Solution 650 MG/20.3 ML CUP PO (23:07)
== END 2018-12-02 23:08 | disposition home or self-care (01) ==
PROVIDERS: Emergency Provider Nurse Practitioner Family; PCP Family Medicine
DX: N64.4 Mastodynia (principal); Z80.3 Family history of malignant neoplasm of breast
CPT/HCPCS: 99282